=== PATIENT | female | born 1990 | race Caucasian/White ===

== ENCOUNTER 2021-02-23 15:53 | Emergency (ER) | payer OTHER, SELFPAY ==
[2021-02-23 16:04] VITALS: BP 121/89; PULSE 97; RESP 18; TEMP 36.7; O2SAT 100
[2021-02-23] MEDS: TETANUS,DIPHTHERIA,AC PERTUSSIS ADULT (0.5 ML) BOOSTRIX IM (16:13)
--- NOTE | 2021-02-23 16:21 | ED.WOUNDLAC ---
HPI - Wound/Laceration General Chief Complaint: Wound/Laceration Stated Complaint: laceration rt hand Time Seen by Provider: 02/23/21 16:15 Source: patient and RN notes reviewed Mode of arrival: ambulatory Limitations: no limitations History of Present Illness HPI narrative: Meryl is a 30-year-old female patient who ambulated into the [facility]. Patient states she was doing dishes and a akira jar broke and cut the palm of her right hand. Patient is complaining of numbness to the right index finger. Patient states is gotten worse on the drive over here. Patient is able to move all 5 fingers. Patient immediately wrapped the hand into discharged and came to the [facility]. Patient is unsure of when her last tetanus shot was. Related Data Allergies Allergy/AdvReac Type Severity Reaction Status Date / Time cefaclor [From [facility]] Allergy Rash Verified 02/23/21 16:18 Review of Systems Review of Systems: CONSTITUTIONAL: Denies body aches, fever, chills, or sweats. EYES: Denies visual changes, redness, or discharge. ENT: Denies rhinorrhea, congestion, sore throat, or otalgia. CARDIOVASCULAR: Denies chest pain, palpitations, or edema. RESPIRATORY: Denies cough or dyspnea. GASTROINTESTINAL: Denies abdominal pain, nausea, vomiting, or diarrhea. GENITOURINARY: Denies dysuria or hematuria. SKIN: Denies rash, itching, + right palm laceration MUSCULOSKELETAL: Denies back pain, joint pain, or myalgia. NEUROLOGIC: Denies headache, numbness, tingling, or weakness. PSYCH: Denies depression or anxiety. All systems reviewed & are unremarkable except as noted in HPI and below PMFSH Comments At time of signature, I have reviewed and agree with nursing past medical, surgical, social and family history unless otherwise noted. Please see nursing chart for further information. There is no relevant family history pertinent to the presenting complaint Exam Narrative: GENERAL: Well-appearing, well-nourished, and in no acute distress. HEAD: Normocephalic, atraumatic. EYES: EOMI. No redness or drainage. Conjunctivae normal. ENT: Mucous membranes pink and moist. Nares clear. No rhinorrhea. TMs normal bilaterally. Throat normal. Uvula midline. NECK: Normal AROM. Supple. No lymphadenopathy. CHEST: No respiratory distress. Clear to auscultation. HEART: Regular rate and rhythm. No murmur appreciated. Normal peripheral pulses. ABDOMEN: Soft, nontender, nondistended, normal active bowel sounds. MUSCULOSKELETAL: No bony tenderness. EXTREMITIES: Normal range of motion. No edema. SKIN: Warm, dry, no rash. Capillary refill normal. Normal skin turgor. 3cm lacreation to palm of right hand, full ROM to hand. Pt has decreased sensation to right index finger and hand. The wound is well approximated. Bleeding is controlled. NEURO: No focal deficits. Alert and oriented x3. Gait steady. PSYCH: Normal affect. No signs of depression or anxiety. Course Course Emergency Course: Patient has a 3 cm laceration on the right palm. Patient is complaining of numbness which is increasing on the right index finger. I called the [facility] surgeon on-call Dr. Mcknight was given instruction to transfer the patient to be seen by a hand surgeon due to the numbness. Vital Signs Vital signs: Vital Signs Temperature 36.7 C 02/23/21 16:04 Pulse Rate 97 02/23/21 16:04 Respiratory Rate 18 02/23/21 16:04 Blood Pressure 121/89 02/23/21 16:04 Pulse Oximetry 100 02/23/21 16:04 Temperature 36.7 C 02/23/21 16:04 Pulse Rate 97 02/23/21 16:04 Respiratory Rate 18 02/23/21 16:04 Blood Pressure 121/89 02/23/21 16:04 Pulse Oximetry 100 02/23/21 16:04 Transfer Transfered to: [facility] Transfer rationale: right index finger numbness after laceration Accepting physician: Dr. Villanueva Transfer comments: report to Francisca charge nurse. Pt to go directly to [facility] for evaluation. MDM - Wound/Laceration MDM Narrative Medical decis
--- NOTE | 2021-02-23 20:14 | PC.NURSE ---
1615-Pt c/o numbness to rt index finger. 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
--- NOTE | 2021-02-23 20:15 | PC.NURSE ---
1620-Pt reporting worsening numbness to rt index finger. Provider aware.
== END 2021-02-23 16:45 | disposition short-term general hospital (02) ==
PROVIDERS: Emergency Provider Nurse Practitioner Family
DX: S61.411A Laceration without foreign body of right hand, initial encounter (principal); W25.XXXA Contact with sharp glass, initial encounter; Y93.G1 Activity, food preparation and clean up; Z23 Encounter for immunization
CPT/HCPCS: 90471; 90715; 99202; G0463